=== PATIENT | male | born 1995 | race Caucasian/White ===

== ENCOUNTER 2021-07-21 02:01 | Inpatient (IN) | payer MEDICAID ==
[~2021-07-21] VITALS: Ht 180.3 cm; Wt 98.3 kg
[2021-07-21] MEDS ORDERED: MORPHINE SULFATE 4 MG/ML, 1ML ONE ×2 (02:14→03:06)
[2021-07-21] MEDS ORDERED: ONDANSETRON 2MG/ML, 2ML ONE ×2 (02:14→03:56)
[2021-07-21] MEDS ORDERED: PANTOPRAZOLE 40 MG IV ONE (02:14)
[2021-07-21] MEDS ORDERED: ONDANSETRON 2MG/ML, 2ML IVPush ONE (02:30)
[2021-07-21] MEDS ORDERED: MORPHINE SULFATE 4 MG/ML, 1ML IVPush PRN (02:30)
[2021-07-21] MEDS ORDERED: SODIUM CHLORIDE 0.9% 1,000ML IVBOLUS ONE ×2 (02:30→03:00)
[2021-07-21] MEDS ORDERED: PANTOPRAZOLE 40 MG IV IVPush ONE (02:30)
[2021-07-21] MEDS ORDERED: SODIUM CHLORIDE FLUSH 10ML SYR IVF ONE (02:30)
[2021-07-21 02:35] LABS: BASOPHILS % (AUTO) 0 % (0-1); EOSINOPHILS % (AUTO) 0 % (1-7); LYMPHOCYTES % (AUTO) 3 % (22-44); MEAN CORPUSCULAR HEMOGLOBIN 20.6 pg (27.5-34.5); MEAN CORPUSCULAR HGB CONC 30.4 g/dL (33.2-36.2); MEAN PLATELET VOLUME 6.4 fL (7.4-10.4); MONOCYTES % (AUTO) 5 % (2-9); NEUTROPHILS % (AUTO) 92 % (42-75); PLATELET COUNT 507 x10^3/uL (130-400); RED BLOOD COUNT 4.74 x10^6/uL (4.38-5.82); RED CELL DISTRIBUTION WIDTH 20.2 % (9.4-14.8)
[2021-07-21] MEDS: PANTOPRAZOLE 80 MG in SODIUM CHLORIDE 0.9% 100 ML IV SCH ×3 (02:40→20:04)
[2021-07-21 02:42] LABS: ALANINE AMINOTRANSFERASE 19 U/L (12-78); ALBUMIN 3.8 g/dL (3.4-5.0); ANION GAP 8 mmol/L (5-15); CALCIUM 8.6 mg/dL (8.5-10.1); CHLORIDE 105 mmol/L (98-107); CREATININE 0.98 mg/dL (0.7-1.3)
[2021-07-21 02:45] LABS: ALKALINE PHOSPHATASE 62 U/L (45-117); BILIRUBIN,TOTAL 0.5 mg/dL (0.2-1.0); TOTAL PROTEIN 7.5 g/dL (6.4-8.2)
[2021-07-21 02:53] LABS: INTERNATIONAL NORMALIZED RATIO 1.1 (0.93-1.1); PROTHROMBIN TIME 11.7 Seconds (9.6-11.5)
[2021-07-21] MEDS ORDERED: PIPERACILLIN/TAZO 3.375 GM in DEXTROSE 5% 50 ML IVPB ONE (03:00)
--- NOTE | 2021-07-21 03:11 | NUR ---
REPORT GIVEN TO ALF DE [facility]OR[facility]. [id number]
--- NOTE | 2021-07-21 03:13 | NUR ---
WALKED RAPID COVID TO LAB AT THIS TIME.
[2021-07-21 03:17] LABS: ANISOCYTOSIS 1+; MICROCYTOSIS 1+; OVALOCYTES 1+; POLYCHROMASIA 1+
[2021-07-21] MEDS ORDERED: HYDROmorphone 2 MG/ML, 1ML ONE (03:17)
[2021-07-21 03:18] LABS: HYPOCHROMIA 1+
[2021-07-21 03:19] LABS: <PLATELET ESTIMATE> INCREASED; <PLT MORPHOLOGY> NORMAL PLT MORPH; TEAR DROPS 1+
--- NOTE | 2021-07-21 03:20 | NUR ---
RN TO CT TO MEDICATE PATIENT.
[2021-07-21] MEDS ORDERED: OMNIPAQUE 350 MG/ML, 100ML BOTTLE ONE (03:29)
[2021-07-21] MEDS ORDERED: HYDROmorphone 2 MG/ML, 1ML IVPush ONE (03:30)
--- NOTE | 2021-07-21 03:38 | NUR ---
PATIENT TO OR AT THIS TIME WITH OR TECH.
[2021-07-21] MEDS ORDERED: MIDAZOLAM 1 MG/ML, 2ML ONE (03:42)
[2021-07-21] MEDS ORDERED: FENTANYL PF 250 MCG/5ML ONE ×2 (03:42→04:35)
[2021-07-21] MEDS ORDERED: SUCCINYLCHOLINE 20 MG/ML, 10ML ONE (03:56)
[2021-07-21] MEDS ORDERED: CEFOTETAN 2 GM ONE (03:56)
[2021-07-21] MEDS ORDERED: ROCURONIUM 10 MG/ML,10ML ONE (03:56)
[2021-07-21] MEDS ORDERED: SUGAMMADEX 200 MG/2 ML IVPush ONE ×2 (03:56→04:47)
[2021-07-21] MEDS ORDERED: KETAMINE 10 MG/ML, 20ML ONE (03:56)
[2021-07-21] MEDS ORDERED: PROPOFOL 10 MG/ML, 20ML ONE (03:56)
[2021-07-21] MEDS: PANTOPRAZOLE 40 MG IV IVPush SCH ×2 (04:00→20:08)
[2021-07-21] MEDS ORDERED: ONDANSETRON 2MG/ML, 2ML IVPush PRN ×2 (04:00→05:00)
[2021-07-21] MEDS ORDERED: FENTANYL PF 100 MCG/2ML ONE (04:51)
[2021-07-21] MEDS ORDERED: OXYcodone 5 MG/5 ML ORAL.SOL UDC ONE (04:52)
[2021-07-21] MEDS ORDERED: MEPERIDINE/PF 25MG/0.5ML IVPush PRN (05:00)
[2021-07-21] MEDS ORDERED: LORazepam 2 MG/ML, 1ML IVPush PRN (05:00)
[2021-07-21] MEDS ORDERED: HALOPERIDOL 5 MG/ML IV PRN (05:00)
[2021-07-21] MEDS ORDERED: hydrALAzine 20 MG/ML, 1ML IV PRN (05:00)
[2021-07-21] MEDS ORDERED: METHOCARBAMOL 1,000 MG in DEXTROSE 5% 100 ML IV PRN (05:00)
[2021-07-21] MEDS ORDERED: OXYcodone 5 MG/5 ML ORAL.SOL UDC PO PRN (05:00)
[2021-07-21] MEDS ORDERED: PROMETHAZINE 25 MG/ML, 1ML IVPush PRN (05:00)
[2021-07-21] MEDS ORDERED: ACETAMINOPHEN 325 MG TABLET PO PRN (05:00)
[2021-07-21] MEDS ORDERED: HYDROmorphone 1 MG/ML, 1ML INJ IVPush PRN (05:00)
[2021-07-21] MEDS ORDERED: EPHEDRINE 50 MG/ML, 1ML IVPush PRN (05:00)
[2021-07-21] MEDS ORDERED: LABETALOL 5MG/ML, 20ML IV PRN (05:00)
[2021-07-21] MEDS: FENTANYL PF 100 MCG/2ML IV PRN ×2 (05:25→06:02)
[2021-07-21] MEDS: LACTOBACILLUS CHEW TABLET PO SCH ×3 (09:00→20:04)
[2021-07-21] MEDS: morphine SULFATE 10 MG/ML, 1ML IVPush PRN ×2 (10:07→19:37)
[2021-07-21] MEDS ORDERED: OMEP-110 PO (10:18)
[2021-07-21 15:15] VITALS: BP 125/78
[2021-07-21 19:42] VITALS: BP 125/56
[2021-07-21] MEDS: SODIUM CHLORIDE 0.9% 1,000 ML IV SCH (20:40)
[2021-07-21] MEDS: HYDROmorphone 2 MG/ML, 1ML IV PRN (20:45)
[2021-07-22 01:01] VITALS: BP 124/77
[2021-07-22] MEDS: HYDROmorphone 2 MG/ML, 1ML IV PRN ×6 (01:20→20:07)
[2021-07-22 04:13] VITALS: BP 130/74
[2021-07-22 05:04] LABS: BASOPHILS % (AUTO) 0 % (0-1); EOSINOPHILS % (AUTO) 1 % (1-7); LYMPHOCYTES % (AUTO) 11 % (22-44); MEAN CORPUSCULAR HEMOGLOBIN 20.9 pg (27.5-34.5); MEAN CORPUSCULAR HGB CONC 30.5 g/dL (33.2-36.2); MEAN PLATELET VOLUME 6.3 fL (7.4-10.4); MONOCYTES % (AUTO) 6 % (2-9); NEUTROPHILS % (AUTO) 82 % (42-75); PLATELET COUNT 358 x10^3/uL (130-400); RED BLOOD COUNT 4.28 x10^6/uL (4.38-5.82); RED CELL DISTRIBUTION WIDTH 20.3 % (9.4-14.8)
[2021-07-22 05:13] LABS: % IRON SATURATION 3 % (20-55); ANION GAP 4 mmol/L (5-15); CALCIUM 7.9 mg/dL (8.5-10.1); CHLORIDE 103 mmol/L (98-107); IRON LEVEL 11 mcg/dL (65-175); TOTAL IRON BINDING CAPACITY 418 mcg/dL (250-450)
[2021-07-22 05:45] LABS: <PLATELET ESTIMATE> ADEQUATE; <PLT MORPHOLOGY> NORMAL PLT MORPH; ANISOCYTOSIS 1+; HYPOCHROMIA 1+; MICROCYTOSIS 1+; OVALOCYTES 1+; POLYCHROMASIA 1+; TEAR DROPS 1+
[2021-07-22] MEDS: SODIUM CHLORIDE 0.9% 1,000 ML IV SCH ×2 (05:54→16:06)
[2021-07-22 07:24] VITALS: BP 117/66
[2021-07-22] MEDS ORDERED: IRON SUCROSE COMPLEX 100MG/5ML IV ONE (08:44)
[2021-07-22] MEDS: PANTOPRAZOLE 40 MG IV IVPush SCH ×2 (09:21→20:07)
[2021-07-22] MEDS: IRON SUCROSE COMPLEX 100MG/5ML IV SCH (09:21)
[2021-07-22] MEDS: LACTOBACILLUS CHEW TABLET PO SCH ×3 (09:21→20:07)
[2021-07-22 13:22] VITALS: BP 118/72
[2021-07-22 19:13] VITALS: BP 108/79
[2021-07-23 00:33] VITALS: BP 127/84
[2021-07-23] MEDS: HYDROmorphone 2 MG/ML, 1ML IV PRN ×7 (00:53→21:40)
[2021-07-23] MEDS: SODIUM CHLORIDE 0.9% 1,000 ML IV SCH (01:33)
[2021-07-23 03:59] VITALS: BP 109/69
[2021-07-23 05:40] LABS: BASOPHILS % (AUTO) 1 % (0-1); EOSINOPHILS % (AUTO) 3 % (1-7); LYMPHOCYTES % (AUTO) 12 % (22-44); MEAN CORPUSCULAR HEMOGLOBIN 20.8 pg (27.5-34.5); MEAN CORPUSCULAR HGB CONC 30.7 g/dL (33.2-36.2); MEAN PLATELET VOLUME 6.6 fL (7.4-10.4); MONOCYTES % (AUTO) 6 % (2-9); NEUTROPHILS % (AUTO) 79 % (42-75); PLATELET COUNT 340 x10^3/uL (130-400); RED CELL DISTRIBUTION WIDTH 19.7 % (9.4-14.8)
[2021-07-23 05:47] LABS: ANION GAP 6 mmol/L (5-15); CALCIUM 7.8 mg/dL (8.5-10.1); CHLORIDE 101 mmol/L (98-107); CREATININE 0.63 mg/dL (0.7-1.3)
[2021-07-23 07:55] VITALS: BP 128/74
[2021-07-23] MEDS: IRON SUCROSE COMPLEX 100MG/5ML IV SCH (08:20)
[2021-07-23] MEDS: LACTOBACILLUS CHEW TABLET PO SCH ×3 (08:20→21:41)
[2021-07-23] MEDS: PANTOPRAZOLE 40MG TABLET PO SCH (08:20)
[2021-07-23] MEDS ORDERED: POTASSIUM CHLORIDE 20 MEQ TAB.ER.PRT PO ONE (08:30)
[2021-07-23] MEDS ORDERED: HYDROmorphone 2 MG/ML, 1ML ONE (08:49)
[2021-07-23] MEDS: NS + 20MEQ KCL 1,000 ML IV SCH ×2 (12:37→22:36)
[2021-07-23 12:53] VITALS: BP 115/74
[2021-07-23] MEDS: MUPIROCIN OINT 2%, 15GM TP SCH ×3 (16:00→21:41)
[2021-07-23 19:03] VITALS: BP 117/76
[2021-07-24] MEDS: HYDROmorphone 2 MG/ML, 1ML IV PRN ×3 (01:41→06:27)
[2021-07-24 01:50] VITALS: BP 121/74
[2021-07-24 05:23] LABS: BASOPHILS % (AUTO) 0 % (0-1); EOSINOPHILS % (AUTO) 1 % (1-7); LYMPHOCYTES % (AUTO) 8 % (22-44); MEAN CORPUSCULAR HEMOGLOBIN 20.7 pg (27.5-34.5); MEAN CORPUSCULAR HGB CONC 30.7 g/dL (33.2-36.2); MEAN PLATELET VOLUME 6.1 fL (7.4-10.4); MONOCYTES % (AUTO) 6 % (2-9); NEUTROPHILS % (AUTO) 85 % (42-75); PLATELET COUNT 347 x10^3/uL (130-400); RED BLOOD COUNT 3.79 x10^6/uL (4.38-5.82); RED CELL DISTRIBUTION WIDTH 20.4 % (9.4-14.8)
[2021-07-24 05:34] LABS: ANION GAP 5 mmol/L (5-15); CALCIUM 8.1 mg/dL (8.5-10.1); CHLORIDE 103 mmol/L (98-107); CREATININE 0.56 mg/dL (0.7-1.3)
[2021-07-24] MEDS: PANTOPRAZOLE 40MG TABLET PO SCH ×2 (06:27→16:28)
[2021-07-24 06:30] VITALS: BP 120/65
[2021-07-24] MEDS: ARTIFICIAL TEARS 15 DROP/ML BOTTLE EACHEYE PRN ×3 (06:32→20:20)
[2021-07-24] MEDS ORDERED: MAGNESIUM SULFATE PMX 2GM/50ML 50 ML IV ONE (08:00)
[2021-07-24] MEDS: NS + 20MEQ KCL 1,000 ML IV SCH ×2 (08:30→18:30)
[2021-07-24] MEDS: IRON SUCROSE COMPLEX 100MG/5ML IV SCH (08:40)
[2021-07-24] MEDS: LACTOBACILLUS CHEW TABLET PO SCH ×3 (08:41→20:18)
[2021-07-24] MEDS: MUPIROCIN OINT 2%, 15GM TP SCH ×3 (08:41→20:19)
[2021-07-24] MEDS ORDERED: HYDROmorphone 2 MG/ML, 1ML IV PRN (09:00)
[2021-07-24] MEDS ORDERED: OXYcodone IR 5MG TABLET PO PRN (12:30)
[2021-07-24] MEDS: ACETAMINOPHEN 325 MG TABLET PO SCH ×2 (12:38→18:18)
[2021-07-24] MEDS: OXYcodone IR 5MG TABLET PO PRN ×2 (12:38→18:18)
[2021-07-24 16:35] VITALS: BP 113/57
[2021-07-24 20:46] VITALS: BP 104/61
[2021-07-24] MEDS ORDERED: DOCUSATE 100 MG CAPSULE PO SCH (21:00)
[2021-07-25] MEDS: OXYcodone IR 5MG TABLET PO PRN ×6 (00:56→23:31)
[2021-07-25] MEDS: ACETAMINOPHEN 325 MG TABLET PO SCH ×4 (00:57→23:31)
[2021-07-25 00:58] VITALS: BP 113/71
[2021-07-25] MEDS: NS + 20MEQ KCL 1,000 ML IV SCH ×2 (04:30→12:30)
[2021-07-25 05:41] LABS: ANION GAP 6 mmol/L (5-15); CALCIUM 8.5 mg/dL (8.5-10.1); CHLORIDE 105 mmol/L (98-107)
[2021-07-25 05:44] LABS: CREATININE 0.64 mg/dL (0.7-1.3)
[2021-07-25 06:35] VITALS: BP 121/75
[2021-07-25 07:31] VITALS: BP 142/78
[2021-07-25] MEDS: PANTOPRAZOLE 40MG TABLET PO SCH ×2 (07:55→15:53)
[2021-07-25] MEDS ORDERED: POTASSIUM CHLORIDE 20 MEQ TAB.ER.PRT PO ONE (08:30)
[2021-07-25] MEDS ORDERED: HYDROmorphone 2 MG/ML, 1ML IV PRN (09:00)
[2021-07-25] MEDS: IRON SUCROSE COMPLEX 100MG/5ML IV SCH (09:00)
[2021-07-25] MEDS: MUPIROCIN OINT 2%, 15GM TP SCH ×3 (09:03→22:00)
[2021-07-25] MEDS: LACTOBACILLUS CHEW TABLET PO SCH ×3 (09:03→21:59)
[2021-07-25] MEDS: ARTIFICIAL TEARS 15 DROP/ML BOTTLE EACHEYE PRN ×2 (09:18→15:53)
[2021-07-25] MEDS ORDERED: FERROUS SULFATE 325 MG TABLET PO SCH (10:30)
[2021-07-25] MEDS: SENNOSIDES 8.6 MG TABLET PO SCH (11:00)
[2021-07-25 13:11] VITALS: BP 110/56
[2021-07-25 18:56] VITALS: BP 118/75
[2021-07-25] MEDS ORDERED: SENNOSIDES 8.6 MG TABLET PO SCH (21:00)
[2021-07-26 02:04] VITALS: BP 117/73
[2021-07-26] MEDS: NS + 20MEQ KCL 1,000 ML IV SCH (02:48)
[2021-07-26 05:20] LABS: BASOPHILS % (AUTO) 1 % (0-1); EOSINOPHILS % (AUTO) 5 % (1-7); LYMPHOCYTES % (AUTO) 30 % (22-44); MEAN CORPUSCULAR HEMOGLOBIN 21.3 pg (27.5-34.5); MEAN CORPUSCULAR HGB CONC 31.9 g/dL (33.2-36.2); MEAN PLATELET VOLUME 6.2 fL (7.4-10.4); MONOCYTES % (AUTO) 8 % (2-9); NEUTROPHILS % (AUTO) 57 % (42-75); PLATELET COUNT 366 x10^3/uL (130-400); RED CELL DISTRIBUTION WIDTH 20.5 % (9.4-14.8)
[2021-07-26] MEDS: ACETAMINOPHEN 325 MG TABLET PO SCH ×2 (05:27→11:27)
[2021-07-26] MEDS: OXYcodone IR 5MG TABLET PO PRN ×2 (05:27→11:26)
[2021-07-26 05:34] LABS: CHLORIDE 106 mmol/L (98-107)
[2021-07-26 05:39] LABS: ANION GAP 5 mmol/L (5-15); CALCIUM 8.7 mg/dL (8.5-10.1); CREATININE 0.58 mg/dL (0.7-1.3)
[2021-07-26] MEDS: PANTOPRAZOLE 40MG TABLET PO SCH (06:14)
[2021-07-26 07:09] VITALS: BP 103/59
[2021-07-26] MEDS: LACTOBACILLUS CHEW TABLET PO SCH (07:53)
[2021-07-26] MEDS: SENNOSIDES 8.6 MG TABLET PO SCH (07:53)
[2021-07-26] MEDS: MUPIROCIN OINT 2%, 15GM TP SCH (09:00)
[2021-07-26] MEDS ORDERED: POTASSIUM CHLORIDE 20 MEQ TAB.ER.PRT PO ONE (09:00)
[2021-07-26] MEDS ORDERED: FERR-36 PO ×3 (09:39→12:36)
[2021-07-26] MEDS ORDERED: ACET325T26 PO ×3 (09:39→12:36)
[2021-07-26] MEDS ORDERED: OXYC5TAB98 PO (09:39)
[2021-07-26] MEDS ORDERED: ACID1TAB7 PO ×3 (09:39→12:36)
[2021-07-26] MEDS ORDERED: PANT40TA6 PO (12:36)
[2021-07-26] MEDS ORDERED: MUPI22OI2 TP (12:36)
== END 2021-07-26 13:30 | disposition home or self-care (01) | DRG 853 ==
LOC: ED 03:12 → EDIP 03:52 → 4NE 06:30
PROVIDERS: ADMIT Family Medicine; ATTEND Internal Medicine
PROC: 0DQ90ZZ Repair Duodenum, Open Approach (ICD-10-PCS; principal; 2021-07-21 03:45)
DX: A41.9 Sepsis, unspecified organism (principal); J96.00 Acute respiratory failure, unspecified whether with hypoxia or hypercapnia; K26.5 Chronic or unspecified duodenal ulcer with perforation; K65.9 Peritonitis, unspecified; D62 Acute posthemorrhagic anemia; E87.1 Hypo-osmolality and hyponatremia; D50.9 Iron deficiency anemia, unspecified; E66.9 Obesity, unspecified; E83.42 Hypomagnesemia; E87.6 Hypokalemia; K25.9 Gastric ulcer, unspecified as acute or chronic, without hemorrhage or perforation; K59.00 Constipation, unspecified; L89.819 Pressure ulcer of head, unspecified stage; R65.20 Severe sepsis without septic shock; Z79.899 Other long term (current) drug therapy; Z68.30 Body mass index [BMI] 30.0-30.9, adult
CPT/HCPCS: 36415; 71045; 74177; 80048; 80053; 80320; 82330; 83540; 83550; 83605; 83690; 83735; 84145; 85025; 85610; 85730; 86850; 86900; 87040; 87338; 87635; 96374; 96375; 99291; G0378; J1170; J1756; J2250; J2405; J2543; J2704; J3010; J3480; Q9967; C1760; C9113; G0480; J0330; J2270; J3475; J7030